=== PATIENT | female | born 1985 | race African-American/Black ===

== ENCOUNTER 2019-08-30 01:06 | Emergency (ER) | payer SELFPAY ==
[~2019-08-30] VITALS: Ht 157.5 cm; Wt 59.0 kg
[2019-08-30] MEDS ORDERED: SODIUM CHLORIDE 0.9% 1,000 ML IV ONE (05:59)
[2019-08-30] MEDS ORDERED: HYDROCODONE/ACETAMINOPHEN 5/325MG TABLET PO ONE (06:45)
[2019-08-30] MEDS ORDERED: ONDANSETRON 4MG ODT PO ONE (06:45)
[2019-08-30 07:27] LABS: BASOPHILS % 0.6 % (0.0-2.0); EOSINOPHILS % 3.1 % (0.0-5.0); HEMATOCRIT. 28.2 % (36.0-48.0); LYMPHOCYTES % 46.4 % (20.0-50.0); MEAN CORPUSCULAR HEMOGLOBIN 26.3 pg (28.0-32.0); MEAN CORPUSCULAR VOLUME 82.3 fL (81.0-99.0); MEAN PLATELET VOLUME 7.5 fl (7.4-10.4); MONOCYTES % 6.2 % (2.0-8.0); NEUTROPHILS % 43.7 % (40.0-76.0); PLATELET 323 x1000/uL (130-400); RED BLOOD CELL COUNT 3.42 mill/uL (4.2-5.4); RED CELL DISTRIBUTION WIDTH 15.5 % (11.6-14.6)
[2019-08-30 07:33] LABS: CHLORIDE 109 mEq/L (98-107)
[2019-08-30 09:09] VITALS: BP 110/69
== END 2019-08-30 09:11 | disposition home or self-care (01) ==
LOC: ER 01:06
DX: R11.10 Vomiting, unspecified (principal); G89.29 Other chronic pain; D57.1 Sickle-cell disease without crisis
CPT/HCPCS: 36415; 71045; 80053; 84484; 85025; 85044; 85660; 86850; 86900; 86901; 93005; 99284; J7030; Z7610